=== PATIENT | female | born 1955 | race Caucasian/White ===

== ENCOUNTER 2021-09-30 15:09 | Outpatient (CLI) | payer BC | END 2021-09-30 15:10 | disposition home or self-care (01) | LOC: CSHMAMMO 15:09 | PROVIDERS: ATTEND Family Medicine | DX: Z13.820 Encounter for screening for osteoporosis (principal); N95.9 Unspecified menopausal and perimenopausal disorder; M85.89 Other specified disorders of bone density and structure, multiple sites | CPT/HCPCS: 77080 ==

== ENCOUNTER 2025-04-14 08:25 | Outpatient (CLI) | payer BC | END 2025-04-14 08:26 | disposition home or self-care (01) | LOC: CSHMRI 08:25 | PROVIDERS: ATTEND Family Medicine | DX: G44.89 Other headache syndrome (principal); R25.1 Tremor, unspecified | CPT/HCPCS: 70553; 76376 ==